=== PATIENT | male | born 1995 | race Caucasian/White ===

== ENCOUNTER 2020-07-15 16:42 | Emergency (ER) | payer OTHER ==
[~2020-07-15] VITALS: Ht 167.6 cm; Wt 72.6 kg
[~2020-07-15 16:42] MED LIST: LIORESAL 10 MG10 MG PO; NAPROSYN500 MG PO
[2020-07-15 18:04] VITALS: BP 123/77
== END 2020-07-15 18:04 | disposition home or self-care (01) ==
LOC: ER 16:42 → EDBD 16:42 → ER 18:04
DX: M25.562 Pain in left knee (principal); X50.1XXA Overexertion from prolonged static or awkward postures, initial encounter; Y93.89 Activity, other specified; Y92.89 Other specified places as the place of occurrence of the external cause; Y99.0 Civilian activity done for income or pay